=== PATIENT | female | born 1980 | race Caucasian/White ===

== ENCOUNTER 2017-01-18 14:31 | Emergency (ER) | payer OTHER ==
[~2017-01-18 14:31] MED LIST: ADVIL200 M1 PO; ALLEGRA30 MG; AZITHROMYCIN250 MG PO; CIPRO250 M2 PO; CYCLOBENZAPRINE5 M1 PO; FLOMAX0.4 M1 PO; IBUPROFEN600 M1 PO; IMITREX; IMITREX50 M2 PO; IMITREX6 MG/0.51 SQ; LYRICA50 MG; NORCO 5-325 TA1 EACH PO; PAXIL30 M1 PO; PERCOCET 5-3251 EACH PO; TOPAMAX50 M3 PO; VENTOLIN HFA18 GM INH; ZOFRAN ODT4 MG PO; ZOFRAN ODT4 MG/UDTAB PO; ZOFRAN4 M1 PO; ZOFRAN4 M2 PO; ZYRTEC10 M7 PO
[2017-01-18] MEDS ORDERED: TRAZODONE HCL100 M1 PO (16:03)
== END 2017-01-18 16:30 ==
LOC: EDMED 14:31
DX: S86.812A Strain of other muscle(s) and tendon(s) at lower leg level, left leg, initial encounter (principal); X58.XXXA Exposure to other specified factors, initial encounter; Y93.44 Activity, trampolining; Y92.019 Unspecified place in single-family (private) house as the place of occurrence of the external cause; Y99.8 Other external cause status